=== PATIENT | male | born 1945 | race Caucasian/White ===

== ENCOUNTER 2018-03-28 07:04 | Day surgery (SDC) | payer BC, OTHER ==
[2018-03-24 16:14] VITALS: BMI 39.0
[2018-03-28] MEDS ORDERED: BUPIVACAINE HCL 0.25% 125 MG/50 ML VIAL ONE (08:24)
[2018-03-28] MEDS ORDERED: BUPIVACAINE HCL/PF 2.5 MG/ML - 30 ML VIAL IJ ONE (08:24)
[2018-03-28] MEDS ORDERED: LIDOCAINE HCL 2% (20ML MULTI-DOSE VIAL) NR ONE (08:25)
[2018-03-28] MEDS ORDERED: LIDOCAINE HCL 1% PRESERVATIVE FREE - 30ML VIAL ONE (08:25)
[2018-03-28 08:47] LABS: INR 1.69 (0.82-1.09); PROTHROMBIN TIME (PATIENT) 18.7 SEC (10.2-13.0)
[2018-03-28] MEDS ORDERED: MIDAZOLAM HCL 2 MG/2 ML SINGLE DOSE VIAL ONE (09:53)
[2018-03-28] MEDS ORDERED: LIDOCAINE HCL 1%, 10 MG/ML (50 mL VIAL) IJ ONE (10:16)
[2018-03-28] MEDS ORDERED: DEXAMETHASONE SOD PHOSPHATE 4 MG/1 ML VIAL ONE (10:19)
[2018-03-28] MEDS ORDERED: KETOROLAC TROMETHAMINE 30 MG/1 ML VIAL ONE (10:19)
[2018-03-28] MEDS ORDERED: LIDOCAINE HCL/PF 2% SDV 5ML VIAL ONE (10:19)
[2018-03-28] MEDS ORDERED: ONDANSETRON 4 MG/2 ML VIAL ONE (10:19)
[2018-03-28] MEDS ORDERED: ceFAZolin SODIUM 1 GM VIAL ONE (10:19)
[2018-03-28] MEDS ORDERED: BUPIVACAINE HCL/PF 0.25% (2.5MG/ML) 10 ML VIAL IJ ONE (10:22)
--- NOTE | 2018-03-28 11:20 | OP ---
DATE OF OPERATION: 03/28/2018 SURGEON: Dwain Jolley MD PRESSURE VESSEL INSPECTOR: NOHEMI Sandoval PREOPERATIVE DIAGNOSIS: Right carpal tunnel syndrome. POSTOPERATIVE DIAGNOSIS: Right carpal tunnel syndrome. PROCEDURE: Right carpal tunnel release ([id number]). FINDINGS: Thickened transverse carpal ligament impinging upon the median nerve. PROCEDURE: Under sterile conditions, the right upper extremity was prepped and draped in a sterile fashion. Incision was made along the longitudinal portion of the carpal tunnel. A longitudinal incision was made along the proximal portion of the palm, following the palm crease. This was taken down to the transcarpal ligament, which was released initially with scalpel and then extended proximally and distally using blunt tenotomy scissors. The median nerve was identified and completely released from impingement by the transcarpal ligament. The wound was then irrigated with copious amounts of irrigation. Skin was closed with 5-0 nylon in single interrupted sutures. The PA listed above was present and assisted at surgery. Their presence was absolutely medically necessary for the completion of the procedure. They helped hold the arthroscopy, pass instruments (and implants when indicated) and the procedure could not have been completed without their assistance. DWAIN JOLLEY M.D. [id number]
[2018-03-28 11:24] VITALS: BP 120/68; PULSE 71; TEMP 97.9
== END 2018-03-28 11:25 | disposition home or self-care (01) ==
LOC: FASU 07:04
PROVIDERS: ATTEND Orthopaedic Surgery
PROC: 01N50ZZ Release Median Nerve, Open Approach (ICD-10-PCS; principal; 2018-03-28 09:00)
DX: G56.01 Carpal tunnel syndrome, right upper limb (principal)
CPT/HCPCS: 36415; 82962; 85610; 85730

== ENCOUNTER 2018-06-13 12:25 | Inpatient (IN) | payer BC, OTHER ==
--- NOTE | 2018-06-13 12:43 | PDOC ---
History of Present Illness - General Chief Complaint: Shortness of Breath Stated Complaint: SOB Time Seen by Provider: 06/13/18 12:42 - History of Present Illness Initial Comments: 06/13/18 12:42 Mr. Rowan is a 72 yo male w/ pmh of HTN, HLD, Afib (on coumadin), DM, and CRISTELA who presents for evaluation from PCP clinic (Dr. Stephenson) for evaluation of 2 week history of worsening shortness of breath both at rest and on exertion. Patient reports he can no longer walk more than a 1/2 block w/out stopping. Patient was evaluated on Saturday (06/10) in PCP's office and started on Amoxicillin however represented today as his SOB had continued. Patient's O2 sat was noted to be 88% today in clinic, prompting presentation to ED. Patient further reports he has been coughing up brown phlegm over this time period as well. Additionaly, patient has a distant smoking history. The patient denies chest pain, headache and dizziness. Denies fever, chills, nausea, vomit, diarrhea and constipation. Denies dysuria, frequency, urgency and hematuria. Past History - Past Medical History Allergies/Adverse Reactions: Allergies Allergy/AdvReac Type Severity Reaction Status Date / Time No Known Allergies Allergy Unverified 06/13/18 12:35 Home Medications: Ambulatory Orders Carvedilol [Coreg -] 25 mg PO BID 03/24/18 Furosemide [Lasix -] 20 mg PO DAILY 03/24/18 Metformin HCl [Glucophage] 1,000 mg PO BID 03/24/18 Multivitamin [One-Daily Multi-Vitamin] 1 each PO DAILY 03/24/18 Omeprazole 40 mg PO DAILY 03/24/18 Pioglitazone HCl [Actos] 30 mg PO DAILY 03/24/18 Quinapril HCl [Accupril] 40 mg PO DAILY 03/24/18 Sitagliptin Phosphate [Januvia] 100 mg PO DAILY 03/24/18 Warfarin Na [Coumadin] 2.5 mg PO ASDIR 03/24/18 Warfarin Na [Coumadin] 5 mg PO ASDIR 03/24/18 Anemia: No Asthma: No Cancer: No Cardiac Disorders: Yes (A-Fib) CVA: No COPD: No CHF: No Dementia: No Diabetes: Yes (30 yrs ago) GI Disorders: Yes (GERD) Disorders: No HTN: Yes Hypercholesterolemia: Yes Liver Disease: No Seizures: No Thyroid Disease: No - Surgical History Abdominal Surgery: No Appendectomy: No Cardiac Surgery: No Cholecystectomy: No Lung Surgery: No Neurologic Surgery: No Orthopedic Surgery: Yes (Left Carpal Tunnel Release,Bilateral Knee Arthrscopy) - Suicide/Smoking/Psychosocial Hx Smoking History: Never smoked Have you smoked in the past 12 months: No Information on smoking cessation initiated: No Hx Alcohol Use: No Drug/Substance Use Hx: No Substance Use Type: None Hx Substance Use Treatment: No Review of Systems - Review of Systems Comments:: 06/13/18 12:42 GENERAL/CONSTITUTIONAL: No fever or chills. No weakness. HEAD, EYES, EARS, NOSE AND THROAT: No change in vision. No ear pain or discharge. No sore throat. CARDIOVASCULAR: +SOB as described. No chest pain RESPIRATORY: No cough, wheezing, or hemoptysis. GASTROINTESTINAL: No nausea, vomiting, diarrhea or constipation. GENITOURINARY: No dysuria, frequency, or change in urination. MUSCULOSKELETAL: +Reported leg swelling VIVIAN. No joint or muscle swelling or pain. No neck or back pain. SKIN: No rash NEUROLOGIC: No headache, vertigo, loss of consciousness, or change in strength/ sensation. ENDOCRINE: No increased thirst. No abnormal weight change HEMATOLOGIC/LYMPHATIC: No anemia, easy bleeding, or history of blood clots. ALLERGIC/IMMUNOLOGIC: No hives or skin allergy. *Physical Exam - Vital Signs Last Vital Signs Temp Pulse Resp BP Pulse Ox 98.0 F 86 18 120/80 98 06/13/18 12:25 06/13/18 12:25 06/13/18 12:25 06/13/18 12:25 06/13/18 12:25 - Physical Exam Comments: 06/13/18 12:43 GENERAL: +Patient obese. Awake, alert, and fully oriented, in no acute distress HEAD: No signs of trauma, normocephalic, atraumatic EYES: PERRLA, EOMI, sclera anicteric, conjunctiva clear ENT: Auricles normal inspection, hearing grossly normal, nares patent, oropharynx clear without exudates. Moist mucosa NECK: Normal ROM, supple, no lymphadenopathy, JVD, or masses LUNGS: No distress, speaks full sentences, clear to auscultation bilaterally HEART: Regular rate and rhythm, normal S1 and S2, no murmurs, rubs or gallops, peripheral pulses normal and equal bilaterally. ABDOMEN: Soft, nontender, normoactive bowel sounds. No guarding, no rebound. No masses EXTREMITIES: +No swelling appreciated to lower extremities however patient wearing compression stockings upon arrival. Otherwise normal inspection, Normal range of motion, no edema. No clubbing or cyanosis. NEUROLOGICAL: Cranial nerves II through XII grossly intact. Normal speech, normal gait, no focal sensorimotor deficits SKIN: Warm, Dry, normal turgor, no rashes or lesions noted. Heart Score/ECG Review - History History: Moderately suspicious - Electrocardiogram EKG: Non specific repolarization disturbance - Age Age: >/= 65 - Risk Factors Risk Factors Heart Score: Yes Hx Hypercholesterolemia, Yes Hx Hypertension, Yes Hx Diabetes, Yes Smoking History, Yes Hx Obesity Based on the list above the patient has:: >/=3 risk factors or Hx atherosclerotic disease - Troponin Troponin: </= normal limit - Score Heart Score - Total: 6 ED Treatment Course - LABORATORY CBC & Chemistry Diagram: 06/13/18 13:35 06/13/18 13:35 Medical Decision Making - Medical Decision Making 06/13/18 14:39 Mr. Rowan is a 72 yo male w/ pmh as described who presents for evaluation of worsening shortness of breath concerning for cardiac process vs. fluid overload vs. pulmonary process. Patient evaluated with EKG, CXR, and labs as below. Patient noted to have congestive changes on CXR. Patient given lasix for diuresis and will bring in to hospital for further cardiac care and diuresis. Discussed with covering provider who will admit. Laboratory Results - last 24 hr 06/13/18 06/13/18 06/13/18 13:35 13:35 13:35 WBC 6.9 RBC 3.47 L Hgb 10.5 L Hct 32.1 L MCV 92.4 MCH 30.2 MCHC 32.7 RDW 16.2 H Plt Count 148 MPV 8.5 Absolute Neuts (auto) 4.9 Neutrophils % 71.6 Lymphocytes % 17.1 Monocytes % 7.5 Eosinophils % 3.4 Basophils % 0.4 Nucleated RBC % 0 PT with INR 31.40 H INR 2.64 H PTT (Actin FS) 36.3 Sodium 142 Potassium 3.9 Chloride 107 Carbon Dioxide 28 Anion Gap 7 L BUN 14 Creatinine 1.0 Creat Clearance w eGFR 73.66 Random Glucose 92 Calcium 8.4 L Total Bilirubin 1.2 H AST 16 ALT 20 Alkaline Phosphatase 67 Creatine Kinase 134 Troponin I < 0.02 Total Protein 6.8 Albumin 3.7 *DC/Admit/Observation/Transfer Diagnosis at time of Disposition: Shortness of breath Fluid overload Qualifiers: Hypervolemia type: unspecified Qualified Code(s): E87.70 - Fluid overload, unspecified - Discharge Dispostion Decision to Admit order: Yes - Referrals Referrals: James Duncan MD [Primary Care Provider] - - Patient Instructions - Post Discharge Activity
[2018-06-13 13:53] LABS: BASO % 0.4 % (0-2.0); EOS % 3.4 % (0-4.5); HEMATOCRIT 32.1 % (35.4-49); HEMOGLOBIN 10.5 GM/dL (11.7-16.9); LYMPH % 17.1 % (8-40); MCH 30.2 pg (25.7-33.7); MCHC 32.7 g/dl (32.0-35.9); MEAN CELL VOLUME 92.4 fl (80-96); MEAN PLT VOLUME 8.5 fl (7.5-11.1); MONO % 7.5 % (3.8-10.2); NEUT % 71.6 % (42.8-82.8); PLATELET COUNT 148 K/MM3 (134-434); RBC 3.47 M/mm3 (4.00-5.60); RDW 16.2 % (11.9-15.9); WHITE BLOOD COUNT 6.9 K/mm3 (4.0-10.0)
[2018-06-13 14:03] LABS: INR 2.64 (0.83-1.09); PROTHROMBIN TIME (PATIENT) 31.4 SEC (9.7-13.0)
[2018-06-13 14:06] LABS: ACTIVATED PTT 36.3 SECONDS (25.2-36.5)
--- NOTE | 2018-06-13 14:10 | EKG ---
Test Reason : Blood Pressure : / mmHG Vent. Rate : 075 BPM Atrial Rate : 055 BPM P-R Int : 000 ms QRS Dur : 102 ms QT Int : 406 ms P-R-T Axes : 000 -12 040 degrees QTc Int : 453 ms ATRIAL FIBRILLATION ABNORMAL ECG WHEN COMPARED WITH ECG OF 11-APR-2010 15:40, NO SIGNIFICANT CHANGE WAS FOUND Confirmed by MARIAJOSE MILLS MD ([id number]) on 06/13/2018 2:09:49 PM Referred By: Confirmed By:MARIAJOSE MILLS MD
[2018-06-13 14:23] LABS: ALBUMIN 3.7 g/dl (3.4-5.0); ALK PHOS 67 U/L (45-117); ANION GAP 7 MMOL/L (8-16); BILIRUBIN,TOTAL 1.2 mg/dL (0.2-1); BLOOD UREA NITROGEN 14 mg/dL (7-18); CALCIUM 8.4 mg/dL (8.5-10.1); CHLORIDE 107 mmol/L (98-107); CO2 28 mmol/L (21-32); GLUCOSE,RANDOM 92 mg/dL (74-106); POTASSIUM 3.9 mmol/L (3.5-5.1); SGOT/AST 16 U/L (15-37); SGPT/ALT 20 U/L (13-61); SODIUM 142 mmol/L (136-145); TOT PROT 6.8 g/dl (6.4-8.2)
[2018-06-13] MEDS ORDERED: FUROSEMIDE 40 MG/4 ML INJECTABLE VIAL IVPUSH ONE (14:29)
[2018-06-13] MEDS ORDERED: FUROSEMIDE 40 MG/4 ML INJECTABLE VIAL ONE (14:37)
--- NOTE | 2018-06-13 14:42 | PDOC ---
Attending Attestation - Resident Resident Name: Nabeel Brown - ED Attending Attestation I have performed the following: I have examined & evaluated the patient, The case was reviewed & discussed with the resident, I agree w/resident's findings & plan, Exceptions are as noted - HPI HPI: 06/13/18 14:40 The patient is a 72 year old male with a significant past medical history of HTN , HLD, Afib (on coumadin), DM, and CRISTELA who presents to the emergency department with 2 weeks of shortness of breath. The patient notes he saw his PCP on Saturday and was started on Amoxicillin for suspected Pneumonia. The patient states he can no longer walk more than a 1/2 block without stopping due to experiencing SOB. The patient denies chest pain, headache, dizziness, fever, chills, nausea, vomit, diarrhea or constipation. The patient denies dysuria, frequency, urgency or hematuria. Allergies: NKDA Past surgical history: Left Carpal Tunnel Release,Bilateral Knee Arthrscopy Social history: distant smoking history. PCP: Dr. Stephenson - Physicial Exam PE: 06/13/18 14:41 GENERAL: Awake, alert, and fully oriented, in no acute distress. HEAD: No signs of trauma EYES: PERRLA, EOMI, sclera anicteric, conjunctiva clear ENT: Auricles normal inspection, hearing grossly normal, nares patent, oropharynx clear without exudates. Moist mucosa NECK: Nontender, no stepoffs, Normal ROM, supple, no lymphadenopathy, JVD, or masses LUNGS: + bibasilar rales HEART: Regular rate and rhythm, normal S1 and S2, no murmurs, rubs or gallops ABDOMEN: Soft, nontender, normoactive bowel sounds. No guarding, no rebound. No masses EXTREMITIES: Normal range of motion, no edema. No clubbing or cyanosis. No cords, erythema, or tenderness NEUROLOGICAL: Cranial nerves II through XII intact. 5/5 strength and sensation in all extremities, Normal speech, normal gait, normal cerebellar function SKIN: Warm, Dry, normal turgor, no rashes or lesions noted. - Medical Decision Making 06/13/18 14:42 72 M with likely CHF exacerbation. - Labs, BNP, trop - CXR - Lasix IV
[2018-06-13 14:52] LABS: N-TERMINAL BNP 1229.1 pg/ml (5-125)
--- NOTE | 2018-06-13 15:57 | HP ---
Admitting History and Physical - Primary Care Physician PCP: Luis Vidal - Admission Chief Complaint: sob History of Present Illness: pt seen/ examined in er chart reviewed discussed with er resident/ pt /pts and pts brother -in law Mr. Rowan is a 72 yo male w/ pmh of HTN, HLD, Afib (on coumadin), DM, obesity and CRISTELA who presents for evaluation from PCP clinic (Dr. Stephenson) for evaluation of 2 week history of worsening shortness of breath both at rest and on exertion. Patient reports he can no longer walk more than a 1/2 block w/out stopping. Patient was evaluated on Saturday (06/10) in PCP's office and started on Amoxicillin however represented today as his SOB had continued. Patient's O2 sat was noted to be 88% today in clinic, prompting presentation to ED. Patient further reports he has been coughing up brown phlegm over this time period as well. Pt found in chf exac given i/v lasix-- to be admitted to tele pt feels better after getting lasix. History Source: Patient, Family Member Limitations to Obtaining History: No Limitations - Past Medical History Cardiovascular: Yes: AFIB, HTN, Other (obesity) Endocrine: Yes: Diabetes Mellitus - Smoking History Smoking history: Never smoked Have you smoked in the past 12 months: No - Alcohol/Substance Use Hx Alcohol Use: No - Social History Usual Living Arrangement: Yes: With Spouse History of Recent Travel: No Home Medications - Allergies Allergies/Adverse Reactions: Allergies Allergy/AdvReac Type Severity Reaction Status Date / Time No Known Allergies Allergy Unverified 06/13/18 12:35 - Home Medications Home Medications: Ambulatory Orders Carvedilol [Coreg -] 25 mg PO BID 03/24/18 Furosemide [Lasix -] 20 mg PO DAILY 03/24/18 Metformin HCl [Glucophage] 1,000 mg PO BID 03/24/18 Multivitamin [One-Daily Multi-Vitamin] 1 each PO DAILY 03/24/18 Omeprazole 40 mg PO DAILY 03/24/18 Pioglitazone HCl [Actos] 30 mg PO DAILY 03/24/18 Quinapril HCl [Accupril] 40 mg PO DAILY 03/24/18 Sitagliptin Phosphate [Januvia] 100 mg PO DAILY 03/24/18 Warfarin Na [Coumadin] 2.5 mg PO ASDIR 03/24/18 Warfarin Na [Coumadin] 5 mg PO ASDIR 03/24/18 Review of Systems - Review of Systems Constitutional: reports: Weakness Eyes: reports: No Symptoms HENT: reports: No Symptoms Neck: reports: No Symptoms Cardiovascular: reports: Shortness of Breath Gastrointestinal: reports: No Symptoms Genitourinary: reports: No Symptoms Musculoskeletal: reports: No Symptoms Neurological: reports: No Symptoms Endocrine: reports: No Symptoms Psychiatric: reports: No Symptoms Physical Examination Vital Signs: Vital Signs Temperature 98.0 F 06/13/18 12:25 Pulse Rate 86 06/13/18 12:25 Respiratory Rate 18 06/13/18 12:25 Blood Pressure 120/80 06/13/18 12:25 O2 Sat by Pulse Oximetry (%) 96 06/13/18 12:35 Constitutional: Yes: No Distress, Obese Eyes: Yes: WNL HENT: Yes: WNL Neck: Yes: WNL, Supple Cardiovascular: Yes: Pulse Irregular Respiratory: Yes: Diminished, On Nasal O2 Gastrointestinal: Yes: Soft Edema: LLE: 1+, RLE: 1+ Neurological: Yes: Alert Psychiatric: Yes: Alert Labs: CBC, BMP 06/13/18 13:35 06/13/18 13:35 Imaging - Results Chest X-ray: Report Reviewed EKG: Report Reviewed Problem List - Problems (1) CHF (congestive heart failure) Code(s): I50.9 - HEART FAILURE, UNSPECIFIED (2) HTN (hypertension) Code(s): I10 - ESSENTIAL (PRIMARY) HYPERTENSION (3) Diabetes Code(s): E11.9 - TYPE 2 DIABETES MELLITUS WITHOUT COMPLICATIONS (4) Afib Code(s): I48.91 - UNSPECIFIED ATRIAL FIBRILLATION (5) Obesity Code(s): E66.9 - OBESITY, UNSPECIFIED (6) Fluid overload Code(s): E87.70 - FLUID OVERLOAD, UNSPECIFIED Qualifiers: Hypervolemia type: unspecified Qualified Code(s): E87.70 - Fluid overload, unspecified (7) Shortness of breath Code(s): R06.02 - SHORTNESS OF BREATH Assessment/Plan Admit to tele oxygen i/v lasix meds reviewed orders written monitor labs coumadin per inr echo ' cardiology eval will follow further recommendations per clinical course.
[2018-06-13] MEDS ORDERED: metFORMIN HCL 500 MG TABLET (FP) ONE (18:42)
[2018-06-13] MEDS: metFORMIN HCL 500 MG TABLET (FP) PO SCH (18:47)
[2018-06-13] MEDS ORDERED: WARFARIN NA 5 MG TABLET (UD) ONE (18:48)
[2018-06-13] MEDS: WARFARIN NA 5 MG TABLET (UD) PO SCH (19:00)
[2018-06-13 21:13] VITALS: BMI 40.0
[2018-06-13] MEDS: CARVEDILOL 25 MG TABLET (FP) PO SCH (21:34)
[2018-06-14] MEDS: FUROSEMIDE 40 MG/4 ML INJECTABLE VIAL IVPUSH SCH ×2 (06:13→14:02)
[2018-06-14] MEDS: metFORMIN HCL 500 MG TABLET (FP) PO SCH ×2 (06:14→17:23)
[2018-06-14] MEDS: sitaGLIPtin PHOSPHATE 100 MG TABLET (FP) PO SCH (06:14)
[2018-06-14 07:34] LABS: BASO % 0.5 % (0-2.0); HEMATOCRIT 31.3 % (35.4-49); HEMOGLOBIN 10.1 GM/dL (11.7-16.9); LYMPH % 17.8 % (8-40); MCH 29.8 pg (25.7-33.7); MCHC 32.4 g/dl (32.0-35.9); MEAN PLT VOLUME 8.7 fl (7.5-11.1); MONO % 7.9 % (3.8-10.2); NEUT % 70.8 % (42.8-82.8); PLATELET COUNT 132 K/MM3 (134-434); RDW 16.1 % (11.9-15.9); WHITE BLOOD COUNT 5.8 K/mm3 (4.0-10.0)
[2018-06-14 07:40] LABS: ALBUMIN 3.3 g/dl (3.4-5.0); ALK PHOS 61 U/L (45-117); ANION GAP 2 MMOL/L (8-16); BILIRUBIN,TOTAL 1.5 mg/dL (0.2-1); BLOOD UREA NITROGEN 13 mg/dL (7-18); CALCIUM 8.7 mg/dL (8.5-10.1); CHLORIDE 105 mmol/L (98-107); CHOLESTEROL 84 mg/dL (50-200); CO2 32 mmol/L (21-32); CREATININE 0.9 mg/dL (0.55-1.3); GLUCOSE,RANDOM 112 mg/dL (74-106); HDL CHOLESTEROL 35 mg/dL (40-60); POTASSIUM 3.6 mmol/L (3.5-5.1); SGOT/AST 15 U/L (15-37); SGPT/ALT 19 U/L (13-61); SODIUM 139 mmol/L (136-145); TOT PROT 6.4 g/dl (6.4-8.2); TRIGLYCERIDES 93 mg/dL (0-150)
[2018-06-14] MEDS ORDERED: QUINAPRIL HCL 20 MG TABLET (FP) ONE (09:20)
[2018-06-14] MEDS: ATORVASTATIN CA 20 MG TABLET (FP) PO SCH (09:38)
[2018-06-14] MEDS: PANTOPRAZOLE 40 MG TABLET (FP) PO SCH (09:38)
[2018-06-14] MEDS: CARVEDILOL 25 MG TABLET (FP) PO SCH ×2 (09:38→22:12)
[2018-06-14] MEDS: QUINAPRIL HCL 40 MG TABLET (FP) PO SCH (09:38)
[2018-06-14] MEDS: MULTIVITAMINS (DAILY MVI) TABLET (FP) PO SCH (09:38)
[2018-06-14] MEDS: POTASSIUM CHLORIDE TABS 20 MEQ TABLET.ER (FP) PO SCH (09:38)
--- NOTE | 2018-06-14 12:04 | PN ---
Progress Note (short form) - Note Progress Note: better no distress dysnea improved family at bedside Vital Signs Temp 97.8 F 06/14/18 09:11 Pulse 86 06/14/18 09:11 Resp 20 06/14/18 09:11 BP 136/76 06/14/18 09:11 Pulse Ox 97 06/14/18 08:35 Intake & Output 06/13/18 06/14/18 06/14/18 23:59 11:59 23:59 Intake Total 200 Output Total 575 500 Balance -575 -300 Weight 311 lb 12.8 oz Intake: Oral 200 Output: Urine 575 500 Void 575 500 Other: Voiding Method Urinal Toilet Bowel Movement Yes Height 6 ft 2 in Body Mass Index (BMI) 40.0 Active Medications Atorvastatin Calcium (Lipitor -) 20 mg PO DAILY [facility] Last Admin: 06/14/18 09:38 Dose: 20 mg Carvedilol (Coreg -) 25 mg PO BID [facility] Last Admin: 06/14/18 09:38 Dose: 25 mg Furosemide (Lasix Injection -) 40 mg IVPUSH BID@0600,1400 [facility] Last Admin: 06/14/18 06:13 Dose: 40 mg Metformin HCl (Glucophage -) 1,000 mg PO BIDAC [facility] Last Admin: 06/14/18 06:14 Dose: 1,000 mg Multivitamins/Minerals/Vitamin C (Tab-A-Vit -) 1 tab PO DAILY [facility] Last Admin: 06/14/18 09:38 Dose: 1 tab Pantoprazole Sodium (Protonix -) 40 mg PO DAILY [facility] Last Admin: 06/14/18 09:38 Dose: 40 mg Potassium Chloride (K-Dur -) 20 meq PO DAILY [facility] Last Admin: 06/14/18 09:38 Dose: 20 meq Quinapril HCl (Accupril -) 40 mg PO DAILY [facility] Last Admin: 06/14/18 09:38 Dose: 40 mg Sitagliptin Phosphate (Januvia -) 100 mg PO DAILY@0700 [facility] Last Admin: 06/14/18 06:14 Dose: 100 mg Warfarin Sodium (Coumadin -) 5 mg PO DAILY@1800 [facility] Last Admin: 06/13/18 19:00 Dose: 5 mg CBC, BMP 06/14/18 05:30 06/14/18 05:30 Physical Examination Constitutional: Yes: No Distress, Obese Eyes: Yes: WNL HENT: Yes: WNL Neck: Yes: WNL, Supple. no jvd Cardiovascular: Yes: Pulse Irregular Respiratory: Yes: Diminished, On Nasal O2 Gastrointestinal: Yes: Soft Edema: LLE: 1+, RLE: 1+ Assessment/Plan Better oxygen i/v lasix coumadin per inr echo ' cardiology eval ambulate will follow further recommendations per clinical course. discussed with family.-- / daughter Problem List - Problems (1) CHF (congestive heart failure) Code(s): I50.9 - HEART FAILURE, UNSPECIFIED (2) HTN (hypertension) Code(s): I10 - ESSENTIAL (PRIMARY) HYPERTENSION (3) Diabetes Code(s): E11.9 - TYPE 2 DIABETES MELLITUS WITHOUT COMPLICATIONS (4) Afib Code(s): I48.91 - UNSPECIFIED ATRIAL FIBRILLATION (5) Obesity Code(s): E66.9 - OBESITY, UNSPECIFIED (6) Fluid overload Code(s): E87.70 - FLUID OVERLOAD, UNSPECIFIED Qualifiers: Hypervolemia type: unspecified Qualified Code(s): E87.70 - Fluid overload, unspecified (7) Shortness of breath Code(s): R06.02 - SHORTNESS OF BREATH
[2018-06-14 15:24] LABS: INR 2.23 (0.83-1.09); PROTHROMBIN TIME (PATIENT) 26.5 SEC (9.7-13.0)
--- NOTE | 2018-06-14 17:20 | CON.CARD ---
Consult Consult Specialty:: cardiology Reason for Consultation:: shortness of breath - History of Present Illness Chief Complaint: Pt A&Ox3; able to hold conversatin without feeling dyspneic, and feels better than when initially presented History of Present Illness: The patient is a 72 year old male with a significant past medical history of HTN , HLD, Afib (on coumadin), DM, and CRISTELA who presents to the emergency department with 2 weeks of shortness of breath. The patient notes he saw his PCP on Saturday and was started on Amoxicillin for suspected Pneumonia. The patient states he can no longer walk more than a 1/2 block without stopping due to experiencing SOB. - History Source History Provided By: Patient, Medical Record Limitations to Obtaining History: No Limitations - Past Medical History Cardio/Vascular: Yes: AFIB, HTN, Other (obesity) Endocrine: Yes: Diabetes Mellitus - Alcohol/Substance Use Hx Alcohol Use: No - Smoking History Smoking history: Never smoked Have you smoked in the past 12 months: No - Social History History of Recent Travel: No Home Medications - Allergies Allergies/Adverse Reactions: Allergies Allergy/AdvReac Type Severity Reaction Status Date / Time No Known Allergies Allergy Unverified 06/13/18 12:35 - Home Medications Home Medications: Ambulatory Orders Carvedilol [Coreg -] 25 mg PO BID 03/24/18 Furosemide [Lasix -] 20 mg PO DAILY 03/24/18 Metformin HCl [Glucophage] 1,000 mg PO BID 03/24/18 Multivitamin [One-Daily Multi-Vitamin] 1 each PO DAILY 03/24/18 Omeprazole 40 mg PO DAILY 03/24/18 Pioglitazone HCl [Actos] 30 mg PO DAILY 03/24/18 Quinapril HCl [Accupril] 40 mg PO DAILY 03/24/18 Sitagliptin Phosphate [Januvia] 100 mg PO DAILY 03/24/18 Warfarin Na [Coumadin] 2.5 mg PO ASDIR 03/24/18 Warfarin Na [Coumadin] 5 mg PO ASDIR 03/24/18 Vital Signs: Vital Signs Temperature 99.4 F 06/14/18 14:24 Pulse Rate 80 06/14/18 14:24 Respiratory Rate 20 06/14/18 14:24 Blood Pressure 123/66 06/14/18 14:24 O2 Sat by Pulse Oximetry (%) 97 06/14/18 08:35 - Other Data Labs, Other Data: CBC, BMP 06/14/18 05:30 06/14/18 05:30 INR, PTT INR 2.23 (0.83-1.09) H 06/14/18 14:25 Problem List - Problems (1) Afib Assessment/Plan: On metoprolol ER for HR control (and for ?systolic CHF). On warfarin for anticoagulation: INR therapeutic. Code(s): I48.91 - UNSPECIFIED ATRIAL FIBRILLATION (2) CHF (congestive heart failure) Assessment/Plan: +JVP. BNP> 1,200, CXR: prominent hilar, congestive changes Continue metoprolol ER, lisinopril, and furosemide. ECHO for LVEF, chamber sizes, valve status. BUN/Cr, electrolytes, Is and Os, daily weight. Code(s): I50.9 - HEART FAILURE, UNSPECIFIED (3) Diabetes Code(s): E11.9 - TYPE 2 DIABETES MELLITUS WITHOUT COMPLICATIONS (4) Fluid overload Code(s): E87.70 - FLUID OVERLOAD, UNSPECIFIED Qualifiers: Hypervolemia type: unspecified Qualified Code(s): E87.70 - Fluid overload, unspecified (5) HTN (hypertension) Code(s): I10 - ESSENTIAL (PRIMARY) HYPERTENSION (6) Obesity Code(s): E66.9 - OBESITY, UNSPECIFIED (7) Shortness of breath Code(s): R06.02 - SHORTNESS OF BREATH (8) Hyperlipidemia Code(s): E78.5 - HYPERLIPIDEMIA, UNSPECIFIED
[2018-06-14] MEDS: WARFARIN NA 5 MG TABLET (UD) PO SCH (17:23)
[2018-06-15 06:58] LABS: INR 2.31 (0.83-1.09); PROTHROMBIN TIME (PATIENT) 27.5 SEC (9.7-13.0)
[2018-06-15] MEDS: sitaGLIPtin PHOSPHATE 100 MG TABLET (FP) PO SCH (07:13)
[2018-06-15] MEDS: FUROSEMIDE 40 MG/4 ML INJECTABLE VIAL IVPUSH SCH ×2 (07:13→13:22)
[2018-06-15] MEDS: metFORMIN HCL 500 MG TABLET (FP) PO SCH ×2 (07:13→17:00)
[2018-06-15] MEDS ORDERED: QUINAPRIL HCL 20 MG TABLET (FP) ONE (09:06)
[2018-06-15] MEDS: POTASSIUM CHLORIDE TABS 20 MEQ TABLET.ER (FP) PO SCH (09:20)
[2018-06-15] MEDS: MULTIVITAMINS (DAILY MVI) TABLET (FP) PO SCH (09:20)
[2018-06-15] MEDS: ATORVASTATIN CA 20 MG TABLET (FP) PO SCH (09:20)
[2018-06-15] MEDS: CARVEDILOL 25 MG TABLET (FP) PO SCH ×2 (09:20→22:29)
[2018-06-15] MEDS: PANTOPRAZOLE 40 MG TABLET (FP) PO SCH (09:21)
[2018-06-15] MEDS: QUINAPRIL HCL 40 MG TABLET (FP) PO SCH (09:21)
--- NOTE | 2018-06-15 10:22 | PN ---
Progress Note (short form) - Note Progress Note: pt seen/ examined feels better decreased sob denies cp cardiology consult noted-appreciated Vital Signs Temp 98.4 F 06/15/18 09:26 Pulse 80 06/15/18 09:26 Resp 18 06/15/18 09:26 BP 133/70 06/15/18 09:26 Pulse Ox 98 06/15/18 04:26 Intake & Output 06/14/18 06/14/18 06/15/18 11:59 23:59 11:59 Intake Total 200 480 Output Total 500 Balance -300 480 Intake: Oral 200 480 Output: Urine 500 Void 500 Other: Voiding Method Toilet Toilet Toilet # Unmeasured Voids Void 2 1 Active Medications Atorvastatin Calcium (Lipitor -) 20 mg PO DAILY [facility] Last Admin: 06/15/18 09:20 Dose: 20 mg Carvedilol (Coreg -) 25 mg PO BID [facility] Last Admin: 06/15/18 09:20 Dose: 25 mg Furosemide (Lasix Injection -) 40 mg IVPUSH BID@0600,1400 [facility] Last Admin: 06/15/18 07:13 Dose: 40 mg Metformin HCl (Glucophage -) 1,000 mg PO BIDAC [facility] Last Admin: 06/15/18 07:13 Dose: 1,000 mg Multivitamins/Minerals/Vitamin C (Tab-A-Vit -) 1 tab PO DAILY [facility] Last Admin: 06/15/18 09:20 Dose: 1 tab Pantoprazole Sodium (Protonix -) 40 mg PO DAILY [facility] Last Admin: 06/15/18 09:21 Dose: 40 mg Potassium Chloride (K-Dur -) 20 meq PO DAILY [facility] Last Admin: 06/15/18 09:20 Dose: 20 meq Quinapril HCl (Accupril -) 40 mg PO DAILY [facility] Last Admin: 06/15/18 09:21 Dose: 40 mg Sitagliptin Phosphate (Januvia -) 100 mg PO DAILY@0700 [facility] Last Admin: 06/15/18 07:13 Dose: 100 mg Warfarin Sodium (Coumadin -) 5 mg PO DAILY@1800 [facility] Last Admin: 06/14/18 17:23 Dose: 5 mg CBC, BMP 06/14/18 05:30 06/14/18 05:30 INR, PTT INR 2.31 (0.83-1.09) H 06/15/18 05:30 Physical Examination Constitutional: Yes: No Distress, Obese. Eyes: Yes: WNL HENT: Yes: WNL Neck: Yes: WNL, Supple. no jvd Cardiovascular: Yes: Pulse Irregular Respiratory: Yes: Diminished, On Nasal O2-- better air entry. Gastrointestinal: Yes: Soft Edema: LLE: 1+, RLE: 1+ Assessment/Plan Better oxygen continue i/v lasix coumadin per inr echo cardiology on case echo ambulate will follow further recommendations per clinical course. discussed with family.-- again today as well as nursing staff. Problem List - Problems (1) CHF (congestive heart failure) Code(s): I50.9 - HEART FAILURE, UNSPECIFIED (2) HTN (hypertension) Code(s): I10 - ESSENTIAL (PRIMARY) HYPERTENSION (3) Diabetes Code(s): E11.9 - TYPE 2 DIABETES MELLITUS WITHOUT COMPLICATIONS (4) Afib Code(s): I48.91 - UNSPECIFIED ATRIAL FIBRILLATION (5) Obesity Code(s): E66.9 - OBESITY, UNSPECIFIED (6) Fluid overload Code(s): E87.70 - FLUID OVERLOAD, UNSPECIFIED Qualifiers: Hypervolemia type: unspecified Qualified Code(s): E87.70 - Fluid overload, unspecified (7) Shortness of breath Code(s): R06.02 - SHORTNESS OF BREATH
[2018-06-15] MEDS: WARFARIN NA 5 MG TABLET (UD) PO SCH (17:09)
[2018-06-15] MEDS: COLCHICINE 0.6 MG TABLET (FP) PO SCH (23:05)
[2018-06-16] MEDS: FUROSEMIDE 40 MG/4 ML INJECTABLE VIAL IVPUSH SCH ×2 (06:47→14:13)
[2018-06-16] MEDS: metFORMIN HCL 500 MG TABLET (FP) PO SCH ×2 (06:47→17:59)
[2018-06-16] MEDS: sitaGLIPtin PHOSPHATE 100 MG TABLET (FP) PO SCH (06:47)
[2018-06-16 09:47] LABS: INR 2.71 (0.83-1.09); PROTHROMBIN TIME (PATIENT) 32.3 SEC (9.7-13.0)
--- NOTE | 2018-06-16 10:23 | PN ---
Progress Note (short form) - Note Progress Note: pt seen/ examined Developed pain in right great toe - last night-- statred on cochicine-- better denies cp breathing much better Vital Signs Temp 97.5 F L 06/16/18 01:04 Pulse 84 06/16/18 06:00 Resp 20 06/16/18 06:00 BP 145/77 06/16/18 06:00 Pulse Ox 95 06/16/18 09:11 Intake & Output 06/15/18 06/15/18 06/16/18 11:59 23:59 11:59 Intake Total 600 Output Total 300 Balance 300 Intake: Oral 480 Oral Supplement 120 Output: Urine 300 Void 300 Other: Voiding Method Toilet Toilet # Unmeasured Voids Void 1 2 1 Active Medications Atorvastatin Calcium (Lipitor -) 20 mg PO DAILY [facility] Last Admin: 06/15/18 09:20 Dose: 20 mg Carvedilol (Coreg -) 25 mg PO BID [facility] Last Admin: 06/15/18 22:29 Dose: 25 mg Colchicine (Colcrys -) 0.6 mg PO BID [facility] Last Admin: 06/15/18 23:05 Dose: 0.6 mg Furosemide (Lasix Injection -) 40 mg IVPUSH BID@0600,1400 [facility] Last Admin: 06/16/18 06:47 Dose: 40 mg Metformin HCl (Glucophage -) 1,000 mg PO BIDAC [facility] Last Admin: 06/16/18 06:47 Dose: 1,000 mg Multivitamins/Minerals/Vitamin C (Tab-A-Vit -) 1 tab PO DAILY [facility] Last Admin: 06/15/18 09:20 Dose: 1 tab Pantoprazole Sodium (Protonix -) 40 mg PO DAILY [facility] Last Admin: 06/15/18 09:21 Dose: 40 mg Potassium Chloride (K-Dur -) 20 meq PO DAILY [facility] Last Admin: 06/15/18 09:20 Dose: 20 meq Quinapril HCl (Accupril -) 40 mg PO DAILY [facility] Last Admin: 06/15/18 09:21 Dose: 40 mg Sitagliptin Phosphate (Januvia -) 100 mg PO DAILY@0700 [facility] Last Admin: 06/16/18 06:47 Dose: 100 mg Warfarin Sodium (Coumadin -) 5 mg PO DAILY@1800 [facility] Last Admin: 06/15/18 17:09 Dose: 5 mg CBC, BMP 06/14/18 05:30 06/14/18 05:30 INR, PTT INR 2.71 (0.83-1.09) H 06/16/18 08:53 Physical Examination Constitutional: Yes: No Distress, Obese. Eyes: Yes: WNL HENT: Yes: WNL Neck: Yes: WNL, Supple. no jvd Cardiovascular: Yes: Pulse Irregular Respiratory: Yes: Diminished, On Nasal O2-- better air entry. Gastrointestinal: Yes: Soft Edema: Decreased Right Toe tenderness / reddened Assessment/Plan gout chf exac. oxygen continue i/v lasix -- coumadin per inr echo cardiology on case echo today ambulate will follow further recommendations per clinical course. discussed with family.-- again today as well as nursing staff. Problem List - Problems (1) CHF (congestive heart failure) Code(s): I50.9 - HEART FAILURE, UNSPECIFIED (2) HTN (hypertension) Code(s): I10 - ESSENTIAL (PRIMARY) HYPERTENSION (3) Diabetes Code(s): E11.9 - TYPE 2 DIABETES MELLITUS WITHOUT COMPLICATIONS (4) Afib Code(s): I48.91 - UNSPECIFIED ATRIAL FIBRILLATION (5) Obesity Code(s): E66.9 - OBESITY, UNSPECIFIED (6) Fluid overload Code(s): E87.70 - FLUID OVERLOAD, UNSPECIFIED Qualifiers: Hypervolemia type: unspecified Qualified Code(s): E87.70 - Fluid overload, unspecified (7) Shortness of breath Code(s): R06.02 - SHORTNESS OF BREATH (8) Gout attack Code(s): M10.9 - GOUT, UNSPECIFIED
--- NOTE | 2018-06-16 10:26 | PN ---
Progress Note, Physician Chief Complaint: Events noted Complains of pain in right great toe History of Present Illness: Patient was seen and examined. Awake and alert. Chart was reviewed Denies chest pain, SOB or palpitations Pain in great toe suggest gout Also complains of left knee pain - Current Medication List Current Medications: Active Medications Atorvastatin Calcium (Lipitor -) 20 mg PO DAILY [facility] Last Admin: 06/15/18 09:20 Dose: 20 mg Carvedilol (Coreg -) 25 mg PO BID [facility] Last Admin: 06/15/18 22:29 Dose: 25 mg Colchicine (Colcrys -) 0.6 mg PO BID [facility] Last Admin: 06/15/18 23:05 Dose: 0.6 mg Furosemide (Lasix Injection -) 40 mg IVPUSH BID@0600,1400 [facility] Last Admin: 06/16/18 06:47 Dose: 40 mg Metformin HCl (Glucophage -) 1,000 mg PO BIDAC [facility] Last Admin: 06/16/18 06:47 Dose: 1,000 mg Multivitamins/Minerals/Vitamin C (Tab-A-Vit -) 1 tab PO DAILY [facility] Last Admin: 06/15/18 09:20 Dose: 1 tab Pantoprazole Sodium (Protonix -) 40 mg PO DAILY [facility] Last Admin: 06/15/18 09:21 Dose: 40 mg Potassium Chloride (K-Dur -) 20 meq PO DAILY [facility] Last Admin: 06/15/18 09:20 Dose: 20 meq Quinapril HCl (Accupril -) 40 mg PO DAILY [facility] Last Admin: 06/15/18 09:21 Dose: 40 mg Sitagliptin Phosphate (Januvia -) 100 mg PO DAILY@0700 [facility] Last Admin: 06/16/18 06:47 Dose: 100 mg Warfarin Sodium (Coumadin -) 5 mg PO DAILY@1800 [facility] Last Admin: 06/15/18 17:09 Dose: 5 mg - Objective Vital Signs: Vital Signs Temperature 97.5 F L 06/16/18 01:04 Pulse Rate 84 06/16/18 06:00 Respiratory Rate 20 06/16/18 06:00 Blood Pressure 145/77 06/16/18 06:00 O2 Sat by Pulse Oximetry (%) 95 06/16/18 09:11 HENT: Yes: Atraumatic Neck: Yes: Supple Cardiovascular: Yes: Regular Rate and Rhythm, S1, S2 Respiratory: Yes: CTA Bilaterally Gastrointestinal: Yes: Normal Bowel Sounds, Soft. No: Tenderness Edema: No Labs: CBC, BMP 06/14/18 05:30 06/14/18 05:30 INR, PTT INR 2.71 (0.83-1.09) H 06/16/18 08:53 Problem List - Problems (1) Afib Code(s): I48.91 - UNSPECIFIED ATRIAL FIBRILLATION Qualifiers: Atrial fibrillation type: persistent Qualified Code(s): I48.1 - Persistent atrial fibrillation (2) CHF (congestive heart failure) Code(s): I50.9 - HEART FAILURE, UNSPECIFIED Qualifiers: Heart failure type: diastolic Heart failure chronicity: acute on chronic Qualified Code(s): I50.33 - Acute on chronic diastolic (congestive) heart failure (3) Diabetes Code(s): E11.9 - TYPE 2 DIABETES MELLITUS WITHOUT COMPLICATIONS Qualifiers: Diabetes mellitus type: type 2 Diabetes mellitus terminal superintendent insulin use: without jail use Diabetes mellitus complication status: without complication Qualified Code(s): E11.9 - Type 2 diabetes mellitus without complications (4) HTN (hypertension) Code(s): I10 - ESSENTIAL (PRIMARY) HYPERTENSION Qualifiers: Hypertension type: essential hypertension Qualified Code(s): I10 - Essential (primary) hypertension (5) Hyperlipidemia Code(s): E78.5 - HYPERLIPIDEMIA, UNSPECIFIED Qualifiers: Hyperlipidemia type: pure hypercholesterolemia Qualified Code(s): E78.00 - Pure hypercholesterolemia, unspecified; E78.0 - Pure hypercholesterolemia (6) Obesity Code(s): E66.9 - OBESITY, UNSPECIFIED (7) Shortness of breath Code(s): R06.02 - SHORTNESS OF BREATH Assessment/Plan 1. Persistent atrial fibrillation on Coumadin ([id number] score of 4-5) 2. HTN 3. Hypercholesterolemia 4. Acute on chronic LV diastolic failure 5. DM 6. Gout PLAN: 1. Continue current medical therapy including Carvedilol and Accupril. Continue Coumadin per INR 2. Continue Lipitor 3. IV Lasix and K supplement. Monitor renal function and electrolytes 4. Stated on Colchicine and NSAID 5. Echocardiography to assess LV/RV and valvular function - normal LV systolic function LVEF 60-65% Further plans are to follow Cory Rosario MD
[2018-06-16] MEDS ORDERED: QUINAPRIL HCL 20 MG TABLET (FP) ONE (10:33)
[2018-06-16] MEDS: PANTOPRAZOLE 40 MG TABLET (FP) PO SCH (11:14)
[2018-06-16] MEDS: COLCHICINE 0.6 MG TABLET (FP) PO SCH ×2 (11:14→21:48)
[2018-06-16] MEDS: ATORVASTATIN CA 20 MG TABLET (FP) PO SCH (11:15)
[2018-06-16] MEDS: QUINAPRIL HCL 40 MG TABLET (FP) PO SCH (11:15)
[2018-06-16] MEDS: POTASSIUM CHLORIDE TABS 20 MEQ TABLET.ER (FP) PO SCH (11:15)
[2018-06-16] MEDS: MULTIVITAMINS (DAILY MVI) TABLET (FP) PO SCH (11:15)
[2018-06-16] MEDS: CARVEDILOL 25 MG TABLET (FP) PO SCH ×2 (11:15→21:48)
--- NOTE | 2018-06-16 12:25 | ECHO ---
Name: GIRONYEHUDA Exam:Adult Echocardiogram Study Date: 06/16/2018 10:11 AM Age: 72 yrs Reason For Study: chf Height: 74 in Weight: 320 lb BSA: 2.7 m2 MMode/2D Measurements & Calculations IVSd: 0.86 cm Ao root diam: 3.5 cm LVIDd: 5.6 cm LA dimension: 4.9 cm LVIDs: 4.2 cm ACS: 1.3 cm LVPWd: 1.3 cm IVSs: 1.3 cm LVPWs: 1.3 cm EDV(Teich): 151.7 ml ESV(Teich): 77.5 ml LVOT diam: 2.0 cm LAV (MOD-bp): 95.0 ml Doppler Measurements & Calculations MV E max wayne: 136.2 cm/sec Ao V2 max: 188.9 cm/sec MV A max wayne: 37.5 cm/sec Ao max P.3 mmHg MV E/A: 3.6 Ao V2 mean: 143.0 cm/sec Ao mean P.0 mmHg Ao V2 VTI: 37.4 cm RASHAAD(I,D): 2.0 cm2 RASHAAD(V,D): 1.9 cm2 LV V1 max P.1 mmHg MR max wayne: 475.9 cm/sec LV V1 mean P.2 mmHg MR max P.6 mmHg LV V1 max: 112.6 cm/sec LV V1 mean: 84.0 cm/sec LV V1 VTI: 23.1 cm SV(LVOT): 75.5 ml PA V2 max: 141.2 cm/sec PA max P.0 mmHg Procedure A complete two-dimensional transthoracic echocardiogram was performed (2D, M-mode, Doppler and color flow Doppler). Left Ventricle The left ventricle is normal in size. Left ventricular systolic function is normal. Ejection Fraction = 60- 65%. No regional wall motion abnormalities noted. Right Ventricle The right ventricle is normal size. The right ventricular systolic function is normal. Atria The left atrium is moderately dilated. Right atrial size is normal. Mitral Valve There is mild mitral annular calcification. There is mild mitral regurgitation. Tricuspid Valve The tricuspid valve is normal in structure and function. No tricuspid regurgitation. Aortic Valve There is moderate aortic sclerosis.;. No aortic regurgitation is present. Pulmonic Valve The pulmonic valve is not well visualized. Mild pulmonic valvular regurgitation. Great Vessels The aortic root is normal size. Pericardium/Pleura There is no pericardial effusion. Interpretation Summary The left ventricle is normal in size. Left ventricular systolic function is normal. No regional wall motion abnormalities noted. Ejection Fraction = 60-65%. The right ventricular systolic function is normal. The left atrium is moderately dilated. Right atrial size is normal. There is mild mitral annular calcification. There is mild mitral regurgitation. There is moderate aortic sclerosis. No aortic regurgitation is present. Mild pulmonic valvular regurgitation. There is no pericardial effusion. Previous study is not available for comparison Cory Rosario MD 06/16/2018 12:25 PM
[2018-06-16] MEDS ORDERED: PT OWN MED DRAWER 7, Y5N ONE (16:44)
[2018-06-16] MEDS: WARFARIN NA 5 MG TABLET (UD) PO SCH (17:59)
[2018-06-16] MEDS: NAPROXEN 500 MG TABLET (FP) PO SCH (20:35)
[2018-06-17] MEDS: FUROSEMIDE 40 MG/4 ML INJECTABLE VIAL IVPUSH SCH (06:33)
[2018-06-17] MEDS: sitaGLIPtin PHOSPHATE 100 MG TABLET (FP) PO SCH (06:33)
[2018-06-17] MEDS: metFORMIN HCL 500 MG TABLET (FP) PO SCH (06:33)
--- NOTE | 2018-06-17 08:55 | PN ---
Progress Note, Physician Chief Complaint: Events noted Feels better History of Present Illness: Patient was seen and examined. Awake and alert. Chart was reviewed Denies chest pain, SOB or palpitations - Current Medication List Current Medications: Active Medications Atorvastatin Calcium (Lipitor -) 20 mg PO DAILY [facility] Last Admin: 06/16/18 11:15 Dose: 20 mg Carvedilol (Coreg -) 25 mg PO BID [facility] Last Admin: 06/16/18 21:48 Dose: 25 mg Colchicine (Colcrys -) 0.6 mg PO BID [facility] Last Admin: 06/16/18 21:48 Dose: 0.6 mg Furosemide (Lasix Injection -) 40 mg IVPUSH BID@0600,1400 [facility] Last Admin: 06/17/18 06:33 Dose: 40 mg Metformin HCl (Glucophage -) 1,000 mg PO BIDAC [facility] Last Admin: 06/17/18 06:33 Dose: 1,000 mg Multivitamins/Minerals/Vitamin C (Tab-A-Vit -) 1 tab PO DAILY [facility] Last Admin: 06/16/18 11:15 Dose: 1 tab Naproxen (Naprosyn -) 500 mg PO BIDWM [facility] Last Admin: 06/16/18 20:35 Dose: 500 mg Pantoprazole Sodium (Protonix -) 40 mg PO DAILY [facility] Last Admin: 06/16/18 11:14 Dose: 40 mg Potassium Chloride (K-Dur -) 20 meq PO DAILY [facility] Last Admin: 06/16/18 11:15 Dose: 20 meq Quinapril HCl (Accupril -) 40 mg PO DAILY [facility] Last Admin: 06/16/18 11:15 Dose: 40 mg Sitagliptin Phosphate (Januvia -) 100 mg PO DAILY@0700 [facility] Last Admin: 06/17/18 06:33 Dose: 100 mg Warfarin Sodium (Coumadin -) 5 mg PO DAILY@1800 [facility] Last Admin: 06/16/18 17:59 Dose: 5 mg - Objective Vital Signs: Vital Signs Temperature 97.8 F 06/17/18 06:00 Pulse Rate 75 06/17/18 06:00 Respiratory Rate 20 06/17/18 06:00 Blood Pressure 122/68 06/17/18 06:00 O2 Sat by Pulse Oximetry (%) 97 06/16/18 21:00 Eyes: Yes: PERRL HENT: Yes: Atraumatic Neck: Yes: Supple Cardiovascular: Yes: Regular Rate and Rhythm, S1, S2 Respiratory: Yes: CTA Bilaterally Gastrointestinal: Yes: Normal Bowel Sounds, Soft. No: Tenderness Edema: No Additional Findings/Remarks: - Review of Systems Constitutional: denies: Chills, Fever Cardiovascular: denies: Chest Pain. denies: Palpitations, Shortness of Breath Respiratory: denies Cough. denies: Hemoptysis, Orthopnea, PND, SOB, SOB on Exertion Gastrointestinal: denies: Abdominal Pain, Constipation, Diarrhea, Melena, Nausea , Rectal Bleeding, Vomiting Neurological: denies: Dizziness, Headache, Seizure, Syncope Labs: INR, PTT INR 2.71 (0.83-1.09) H 06/16/18 08:53 Problem List - Problems (1) Afib Code(s): I48.91 - UNSPECIFIED ATRIAL FIBRILLATION Qualifiers: Atrial fibrillation type: persistent Qualified Code(s): I48.1 - Persistent atrial fibrillation (2) CHF (congestive heart failure) Code(s): I50.9 - HEART FAILURE, UNSPECIFIED Qualifiers: Heart failure type: diastolic Heart failure chronicity: acute on chronic Qualified Code(s): I50.33 - Acute on chronic diastolic (congestive) heart failure (3) Diabetes Code(s): E11.9 - TYPE 2 DIABETES MELLITUS WITHOUT COMPLICATIONS Qualifiers: Diabetes mellitus type: type 2 Diabetes mellitus intermediate project manager insulin use: without care home use Diabetes mellitus complication status: without complication Qualified Code(s): E11.9 - Type 2 diabetes mellitus without complications (4) HTN (hypertension) Code(s): I10 - ESSENTIAL (PRIMARY) HYPERTENSION Qualifiers: Hypertension type: essential hypertension Qualified Code(s): I10 - Essential (primary) hypertension (5) Hyperlipidemia Code(s): E78.5 - HYPERLIPIDEMIA, UNSPECIFIED Qualifiers: Hyperlipidemia type: pure hypercholesterolemia Qualified Code(s): E78.00 - Pure hypercholesterolemia, unspecified; E78.0 - Pure hypercholesterolemia (6) Obesity Code(s): E66.9 - OBESITY, UNSPECIFIED (7) Shortness of breath Code(s): R06.02 - SHORTNESS OF BREATH Assessment/Plan 1. Persistent atrial fibrillation on Coumadin ([id number] score of 4-5) 2. HTN 3. Hypercholesterolemia 4. Acute on chronic LV diastolic failure 5. DM 6. Gout PLAN: 1. Continue current medical therapy including Carvedilol and Accupril. Continue Coumadin per INR 2. Continue Lipitor 3. Consider switching to PO Lasix and continue K supplement. Monitor renal function and electrolytes 4. Started on Colchicine and NSAID - clinically improving 5. Echocardiography - normal LV systolic function LVEF 60-65% 6. Further cardiac work up can be done as outpatient (patient sees Dr. Catracho Galdamez) Further plans are to follow Cory Rosario MD
[2018-06-17] MEDS ORDERED: FUROSEMIDE 40 MG TABLET (FP) PO SCH (10:00)
[2018-06-17] MEDS ORDERED: QUINAPRIL HCL 20 MG TABLET (FP) ONE (10:04)
[2018-06-17] MEDS ORDERED: PT OWN MED DRAWER 7, Y5N ONE ×2 (10:05→10:39)
[2018-06-17] MEDS: NAPROXEN 500 MG TABLET (FP) PO SCH (10:25)
[2018-06-17] MEDS: PANTOPRAZOLE 40 MG TABLET (FP) PO SCH (10:26)
[2018-06-17] MEDS: POTASSIUM CHLORIDE TABS 20 MEQ TABLET.ER (FP) PO SCH (10:26)
[2018-06-17] MEDS: ATORVASTATIN CA 20 MG TABLET (FP) PO SCH (10:26)
[2018-06-17] MEDS: COLCHICINE 0.6 MG TABLET (FP) PO SCH (10:26)
[2018-06-17] MEDS: MULTIVITAMINS (DAILY MVI) TABLET (FP) PO SCH (10:26)
[2018-06-17] MEDS: CARVEDILOL 25 MG TABLET (FP) PO SCH (10:26)
[2018-06-17] MEDS: QUINAPRIL HCL 40 MG TABLET (FP) PO SCH (10:27)
--- NOTE | 2018-06-17 11:29 | DS ---
Physical Examination Vital Signs: Vital Signs Temperature 97.8 F 06/17/18 06:00 Pulse Rate 75 06/17/18 06:00 Respiratory Rate 20 06/17/18 06:00 Blood Pressure 122/68 06/17/18 06:00 O2 Sat by Pulse Oximetry (%) 95 06/17/18 07:30 Constitutional: Yes: No Distress, Calm Cardiovascular: Yes: Pulse Irregular Respiratory: Yes: Diminished Gastrointestinal: Yes: Normal Bowel Sounds, Soft, Abdomen, Obese. No: Tenderness Edema: Yes (decreased) Labs: CBC, BMP 06/14/18 05:30 06/14/18 05:30 Discharge Summary Reason For Visit: SHORTNESS OF BREATH/HYPERVOLEMIA Current Active Problems Afib (Acute) CHF (congestive heart failure) (Acute) Diabetes (Acute) Fluid overload (Acute) Gout attack (Acute) HTN (hypertension) (Acute) Hyperlipidemia (Acute) Obesity (Acute) Shortness of breath (Acute) Hospital Course: ADMISSION HISTORY - Admission Chief Complaint: sob History of Present Illness: pt seen/ examined in er chart reviewed discussed with er resident/ pt /pts and pts brother -in law Mr. Rowan is a 72 yo male w/ pmh of HTN, HLD, Afib (on coumadin), DM, obesity and CRISTELA who presents for evaluation from PCP clinic (Dr. Stephenson) for evaluation of 2 week history of worsening shortness of breath both at rest and on exertion. Patient reports he can no longer walk more than a 1/2 block w/out stopping. Patient was evaluated on Saturday (06/10) in PCP's office and started on Amoxicillin however represented today as his SOB had continued. Patient's O2 sat was noted to be 88% today in clinic, prompting presentation to ED. Patient further reports he has been coughing up brown phlegm over this time period as well. Pt found in chf exac given i/v lasix-- to be admitted to tele pt feels better after getting lasix. HOSPITAL COURSE Pt was admitted to telemetry On CPAP On iv Lasix Pt was seen and evaluated by cardiology renal function stable Pt diuresed well Weight is decreased He had acute gout flare on rt toe-- on colchicine-- pain is relieved Echo-- normal LVEF Pt stable for dc home on PO lasix 40mg daily follow up with PMD and Cardiology as outpt Condition: Improved - Instructions Referrals: Catracho Galdamez MD [Staff Physician] - Disposition: HOME - Home Medications Comprehensive Discharge Medication List: Ambulatory Orders Carvedilol [Coreg -] 25 mg PO BID 03/24/18 Metformin HCl [Glucophage] 1,000 mg PO BID 03/24/18 Multivitamin [One-Daily Multi-Vitamin] 1 each PO DAILY 03/24/18 Omeprazole 40 mg PO DAILY 03/24/18 Quinapril HCl [Accupril -] 40 mg PO DAILY 03/24/18 Sitagliptin Phosphate [Januvia] 100 mg PO DAILY 03/24/18 Warfarin Na [Coumadin -] 2.5 mg PO ASDIR 03/24/18 Warfarin Na [Coumadin -] 5 mg PO ASDIR 03/24/18 Colchicine [Colcrys -] 0.6 mg PO BID #10 tablet 06/17/18 Furosemide [Lasix -] 40 mg PO DAILY #30 tablet 06/17/18 Potassium Chloride [K-Dur -] 20 meq PO DAILY #30 tablet.er 06/17/18
[2018-06-17 14:19] VITALS: BP 107/53; PULSE 69; TEMP 97.9
== END 2018-06-17 17:17 | disposition home or self-care (01) | DRG 292 ==
LOC: JER 12:25 → JERBED 15:48 → J4W 20:19
PROVIDERS: ADMIT Internal Medicine; ATTEND Internal Medicine
DX: I11.0 Hypertensive heart disease with heart failure (principal); Z68.41 Body mass index [BMI] 40.0-44.9, adult; I50.33 Acute on chronic diastolic (congestive) heart failure; E78.5 Hyperlipidemia, unspecified; E11.9 Type 2 diabetes mellitus without complications; G47.33 Obstructive sleep apnea (adult) (pediatric); K21.9 Gastro-esophageal reflux disease without esophagitis; E87.70 Fluid overload, unspecified; E66.8 Other obesity; M10.9 Gout, unspecified; I48.2 Chronic atrial fibrillation; Z79.01 Long term (current) use of anticoagulants
CPT/HCPCS: 36415; 71045-TC-FY; 80053; 80061; 82550; 82962; 83036; 83721; 83880; 84443; 84484; 85025; 85610; 85730; 93005; 93010; 93306-TC; 94660; 94761; 97116-GP; 99284-25